=== PATIENT | male | born 1985 | race Caucasian/White ===

== ENCOUNTER 2025-07-13 17:27 | Emergency (ER) | payer BC, SELFPAY ==
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
[2025-07-13 17:46] VITALS: BP 159/86; PULSE 91; RESP 16; TEMP 37.1; O2SAT 98
--- OUTSIDE RECORDS SUMMARY | 2025-07-13 20:15 | XMS_ITS | Encounter Summary ---
Author Organization [facility] Address [address] [place] [address] Care Team Providers Care Bull Chain Operator Name Role Phone Unavailable Primary Care Provider Unavailabl e Source Comments In the event that this is information that is protected by federal Confidentiality of Substance User Disorder Patient Records, 42 CFR Part 2 prohibits the unauthorized disclosure of these records.[facility] Encounter Details Date Type Department Care Team (Late st Contact Info) Description 10/24/2013 Orders Only [place] Pathology [address] [place] [address] Isis Ochoa, LOAN COORDINATOR [address] [place] [address] Social History Tobacco Use Types Packs/Day Years Used Date Smoking Tobacco: Never Assessed Sex and Gender Information Value Date Recorded Sex Assigned at Not on file 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
--- OUTSIDE RECORDS SUMMARY | 2025-07-13 20:15 | XMS_ITS | Patient Health Record ---
Author Organization Main ([facility]) - [facility] [place] Address [address] [address] Support Name Relationship Address Phone Unavailable Emergency Contact Unknown [phone] Guarantor Unknown [phone] Reason For Referral No Information Medications Medication SIG (Take, Route, Frequency, Duration) Notes Start Date End Date Status OXYCODONE-ACETAMINO PHEN 5-325 5 MG-325MG TABLETS 1.00(TABS) ORAL Q 6HR *please review for potential update for e-prescription and drug interaction check* 08/21/2016 Active Social History Social History Additional Details Category Social Info Options Details Migrated Social History Migrated Social History (add free-text sentences): docs in [place] advised advance directive Alcohol use: weekends Caffeine use: He reports frequent use of caffeine. Communication Issues: The patient speaks Syriac. Exercise assessment: He exercises daily. Marital status & Children: He is single. He has 1 child. Tobacco use: He denies tobacco use. Problems Problem Type SNOMED Code ICD Code Onset Dates Problem Status W/U Status Risk Notes Problem Generalized anxiety disorder (31976241) Generalized anxiety disorder (300.02) Active confirmed Problem Lipoma of skin (021027641) Lipoma; other skin and subcutaneous tissue (214.1) Active confirmed Problem Venereal disease (5235411) Venereal disease, unspecified (099.9) Active confirmed Plan Of Treatment No Information Insurance Providers Payer Name Payer Address Payer Phone Subscriber Number Group Number Insured Name Patient Relationship to Insured Coverage Start Date Coverage End Date Migrated Missing Insurance [id number] CORWIN DALAL Self - patient is the insured 6
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
[2025-07-13 20:48] VITALS: BP 137/62; PULSE 75; RESP 16; O2SAT 98
== END 2025-07-13 20:51 | disposition home or self-care (01) ==
PROVIDERS: Emergency Provider Physician Assistant
DX: S43.102A Unspecified dislocation of left acromioclavicular joint, initial encounter (principal); V18.0XXA Pedal cycle driver injured in noncollision transport accident in nontraffic accident, initial encounter
CPT/HCPCS: 73000; 99283; A4565